=== PATIENT | female | born 1980 | race American Indian/Alaskan Native ===

== ENCOUNTER 2016-04-14 15:28 | Emergency (ER) | payer MEDICAID, OTHER ==
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
[2016-04-14 19:46] VITALS: BP 122/83
== END 2016-04-14 20:05 | disposition home or self-care (01) ==
LOC: ED 15:28
DX: S16.1XXA Strain of muscle, fascia and tendon at neck level, initial encounter (principal); I10 Essential (primary) hypertension; F17.200 Nicotine dependence, unspecified, uncomplicated; V43.62XA Car passenger injured in collision with other type car in traffic accident, initial encounter; Y93.9 Activity, unspecified; Y99.9 Unspecified external cause status; Y92.410 Unspecified street and highway as the place of occurrence of the external cause
CPT/HCPCS: 99283

== ENCOUNTER 2016-04-16 10:34 | Emergency (ER) | payer OTHER ==
[2016-04-16] MEDS ORDERED: TORADOL ONE (14:45)
[2016-04-16] MEDS ORDERED: VALIUM ONE (14:46)
[2016-04-16] MEDS ORDERED: TORADOL IM ONE (15:02)
[2016-04-16] MEDS ORDERED: VALIUM PO ONE (15:02)
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
== END 2016-04-16 15:41 | disposition home or self-care (01) ==
LOC: ED 10:34
DX: M54.5 Low back pain (principal); I10 Essential (primary) hypertension; F17.200 Nicotine dependence, unspecified, uncomplicated
CPT/HCPCS: 96372; 99282; J1885

== ENCOUNTER 2017-08-01 09:44 | Emergency (ER) | payer OTHER ==
[2017-08-01 10:33] VITALS: BP 129/81
== END 2017-08-01 14:40 ==
LOC: ED 09:44
DX: F29 Unspecified psychosis not due to a substance or known physiological condition (principal); Z53.21 Procedure and treatment not carried out due to patient leaving prior to being seen by health care provider

== ENCOUNTER 2017-08-01 17:12 | Emergency (ER) | payer OTHER ==
[2017-08-01 18:25] LABS: Basophils % (Auto) 0.7 % (0.0-1.8); Eosinophils # (Auto) 0.1 K/mm3 (0.0-0.4); Eosinophils % (Auto) 2.2 % (0.0-4.3); Hematocrit 37.8 % (30.3-42.9); Hemoglobin 11.8 gm/dl (10.1-14.3); Lymphocytes # (Auto) 2.8 K/mm3 (1.2-5.4); Lymphocytes % (Auto) 48.3 % (13.4-35.0); Mean Corpuscular HGB Conc 31 % (30-34); Mean Corpuscular Hemoglobin 27 pg (28-32); Mean Corpuscular Volume 87 fl (79-97); Monocytes # (Auto) 0.7 K/mm3 (0.0-0.8); Platelet Count 237 K/mm3 (140-440); Red Blood Count 4.36 M/mm3 (3.65-5.03); Red Cell Distribution Width 15.4 % (13.2-15.2)
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
[2017-08-01 18:45] LABS: BUN/Creatinine Ratio 23; Blood Urea Nitrogen 14 mg/dL (7-17); Calcium 8.8 mg/dL (8.4-10.2); Hemolysis Index 24
[2017-08-01 19:36] LABS: Bilirubin,Urine NEG (Negative); Blood,Urine NEG (Negative); Color,Urine Straw (Yellow); Mucus,Urine FEW /HPF; Protein,Urine <15 mg/dL mg/dL (Negative); Urobilinogen,Urine < 2.0 mg/dL (<2.0)
[2017-08-01 19:43] LABS: Amphetamine Screen,Urine PRESUMPTIVE NEGATIVE; Benzodiazepines Screen,Urine PRESUMPTIVE NEGATIVE; Cannabinoid Screen,Urine PRESUMPTIVE NEGATIVE; Cocaine Screen,Urine PRESUMPTIVE NEGATIVE; Methadone Screen,Urine PRESUMPTIVE NEGATIVE; Opiate Screen,Urine PRESUMPTIVE NEGATIVE
--- NOTE | 2017-08-01 20:31 | Emergency Department Report ---
ED Medical Clearance HPI - General Chief complaint: Medical Clearance Stated complaint: MED EVAL FOR ANCHOR Time Seen by Provider: 08/01/17 18:12 Source: patient Mode of arrival: Ambulatory - History of Present Illness Initial comments: 36-year-old female presents for medical clearance for [facility]. Mental health personnel at [phone] notified regarding patient's request. Patient has a history of cocaine use. Patient is awake alert and oriented 3 not in acute distress. Complains of slight itchy rash under her breasts but otherwise has no other complaints. Denies fever chills nausea vomiting chest pain palpitations shortness of breath abdominal pain dysuria or increased urinary frequency. MD Complaint: medical clearance request Reason for Medical Clearance: other (drug rehabilitation program) Home medications: Previous Rx's Medication Instructions Recorded Last Taken Type ALBUTEROL Inhaler [ProAir HFA 2 puff IH QID PRN #1 unit 12/04/14 Unknown Rx Inhaler] Levofloxacin [Levaquin TAB] 750 mg PO QDAY #7 tablet 12/04/14 Unknown Rx Acetaminophen/Codeine [Tylenol #3] 1 tab PO Q6H PRN #15 tab 12/14/14 Unknown Rx Cephalexin [Keflex] 500 mg PO Q12HR 5 Days cap 12/14/14 Unknown Rx Cephalexin [Keflex] 500 mg PO Q6HR #40 capsule 01/17/15 Unknown Rx Ibuprofen [Motrin] 600 mg PO Q8H PRN #30 tablet 01/17/15 Unknown Rx Cyclobenzaprine [Flexeril] 10 mg PO TID PRN #15 tablet 04/14/16 Unknown Rx Ibuprofen [Motrin 600 MG tab] 600 mg PO Q8H PRN 15 Days tablet 04/14/16 Unknown Rx Diazepam [Valium] 10 mg PO Q8H PRN #15 tablet 04/16/16 Unknown Rx Nystatin [Nystop Powder] 1 applicatio TP BID #1 bottle 08/01/17 Unknown Rx Tolnaftate [Tinactin] 1 spray TP TID #1 aero.powd 08/01/17 Unknown Rx Allergies/Adverse reactions: Allergies Allergy/AdvReac Type Severity Reaction Status Date / Time No Known Allergies Allergy Verified 12/03/14 05:50 ED Review of Systems ROS: Stated complaint: MED EVAL FOR ANCHOR Other details as noted in HPI Constitutional: denies: chills, fever Eyes: denies: eye pain, eye discharge, vision change ENT: denies: ear pain, throat pain Respiratory: denies: cough, shortness of breath, wheezing Cardiovascular: denies: chest pain, palpitations Endocrine: no symptoms reported Gastrointestinal: denies: abdominal pain, nausea, diarrhea Genitourinary: denies: urgency, dysuria, discharge Musculoskeletal: denies: back pain, joint swelling, arthralgia Skin: rash (rash underneath her breasts). denies: lesions Neurological: denies: headache, weakness, paresthesias Psychiatric: denies: anxiety, depression Hematological/Lymphatic: denies: easy bleeding, easy bruising ED Past Medical Hx - Past Medical History Hx Hypertension: Yes (PIH) Hx Heart Attack/AMI: No Hx Congestive Heart Failure: No Hx Diabetes: No Hx Deep Vein Thrombosis: No Hx Liver Disease: No Hx Renal Disease: No Hx Sickle Cell Disease: No Hx Seizures: No Hx Asthma: No Hx COPD: No Hx HIV: No Additional medical history: Tapeworm - Surgical History Hx Pacemaker: No Hx Internal Defibrillator: No Additional Surgical History: c-secx1 - Social History Smoking Status: Current Every Day Smoker Substance Use Type: Alcohol, Cocaine - Medications Home Medications: Home Medications Medication Instructions Recorded Confirmed Last Taken Type ALBUTEROL Inhaler [ProAir HFA 2 puff IH QID PRN #1 unit 12/04/14 Unknown Rx Inhaler] Levofloxacin [Levaquin TAB] 750 mg PO QDAY #7 tablet 12/04/14 Unknown Rx Acetaminophen/Codeine [Tylenol #3] 1 tab PO Q6H PRN #15 tab 12/14/14 Unknown Rx Cephalexin [Keflex] 500 mg PO Q12HR 5 Days cap 12/14/14 Unknown Rx Cephalexin [Keflex] 500 mg PO Q6HR #40 capsule 01/17/15 Unknown Rx Ibuprofen [Motrin] 600 mg PO Q8H PRN #30 tablet 01/17/15 Unknown Rx Cyclobenzaprine [Flexeril] 10 mg PO TID PRN #15 tablet 04/14/16 Unknown Rx Ibuprofen [Motrin 600 MG tab] 600 mg PO Q8H PRN 15 Days tablet 04/14/16 Unknown Rx Diazepam [Valium] 10 mg PO Q8H PRN #15 tablet 04/16/16 Unknown Rx Nystatin [Nystop Powder] 1 applicatio TP BID #1 bottle 08/01/17 Unknown Rx Tolnaftate [Tinactin] 1 spray TP TID #1 aero.powd 08/01/17 Unknown Rx ED Physical Exam - General Limitations: No Limitations General appearance: alert, in no apparent distress - Head Head exam: Present: atraumatic, normocephalic - Eye Eye exam: Present: normal appearance, PERRL, EOMI - ENT ENT exam: Present: mucous membranes moist - Neck Neck exam: Present: normal inspection - Respiratory Respiratory exam: Present: normal lung sounds bilaterally. Absent: respiratory distress - Cardiovascular Cardiovascular Exam: Present: regular rate, normal rhythm. Absent: systolic murmur, diastolic murmur, rubs, gallop - GI/Abdominal GI/Abdominal exam: Present: soft, normal bowel sounds - Extremities Exam Extremities exam: Present: normal inspection - Back Exam Back exam: Present: normal inspection - Neurological Exam Neurological exam: Present: alert, oriented X3 - Psychiatric Psychiatric exam: Present: normal affect, normal mood - Skin Skin exam: Present: warm, dry, intact, normal color, rash (slight itchy rash underneath breasts the appearance of candidate) ED Course Vital Signs 08/01/17 17:24 Temperature 98.7 F Pulse Rate 90 Respiratory 18 Rate Blood Pressure 121/75 O2 Sat by Pulse 99 Oximetry ED Medical Decision Making - Lab Data Result diagrams: 08/01/17 18:10 08/01/17 18:10 - Medical Decision Making A/P: Medical clearance 1-nystatin powder for candcal intetrigo 2-labs are otherwise unremarkable 3-patient medically cleared to return back to [facility] 4- I discussed this with mental health counselor at extension [phone]. ED Disposition Clinical Impression: Intertrigo, Routine physical examination Disposition: DC-01 TO HOME OR SELFCARE Is pt being admited?: No Does the pt Need Aspirin: No Condition: Stable Prescriptions: Nystatin [Nystop Powder] 1 applicatio TP BID #1 bottle Tolnaftate [Tinactin] 1 spray TP TID #1 aero.powd Referrals: [facility] [Outside] - 3-5 Days Time of Disposition: 20:32
[2017-08-01 20:41] VITALS: BP 144/68
== END 2017-08-01 20:39 | disposition home or self-care (01) ==
LOC: ED 17:12
DX: L30.4 Erythema intertrigo (principal); I10 Essential (primary) hypertension; F17.200 Nicotine dependence, unspecified, uncomplicated; F14.10 Cocaine abuse, uncomplicated
CPT/HCPCS: 36415; 80048; 80307; 81001; 82550; 84703; 85025; 99283; G0480; 80320

== ENCOUNTER 2018-11-22 09:09 | Outpatient (CLI) | payer OTHER ==
--- NOTE | 2018-11-23 10:07 | Ultrasound Report ---
BILATERAL DIGITAL DIAGNOSTIC MAMMOGRAM WITH CAD -- 11/22/2018 BILATERAL LIMITED BREAST ULTRASOUND INDICATION: RT BREAST MASS. The patient stated that the lump had been present for over one year witho ut change. TECHNIQUE: Digital bilateral mammographic imaging was performed. Spot compression views were obtaine d. Limited ultrasound was performed. This examination was interpreted with the benefit of Computer- ded Detection (CAD) analysis. COMPARISON: None. FINDINGS: Breast Density: The breasts are heterogeneously dense, which may obscure small masses. MAMMOGRAPHIC FINDINGS: There is no evidence of dominant mass, suspicious calcifications or architectu ral distortion in the left breast. A right outer asymmetry on the CC view and no mammographic finding at a palpable marker which is only on the MLO view. No architectural distortion or suspicious calcif ications of the right breast. ULTRASOUND FINDINGS: Targeted ultrasound evaluation was performed of the area of interest. An oval solid relatively smooth heterogeneous hypoechoic mass at 8:00 4 cm from the nipple correlates with th e palpable lump. It measures 1.5 x 0.6 x 1.4 cm. IMPRESSION: A probably benign 1.5 cm left breast mass at 8:00 4 cm from the nipple. Follow up recommendation: Recommend right breast ultrasound to reevaluate the mass at 8:00 in 6 month s. BI-RADS Category 3: Probably Benign. Followup in 6 months. A "normal" or negative report should not discourage follow up or biopsy of a clinically significant f inding. A written summary of these findings will be mailed to the patient. The patient will be entered into a mammography reporting system which will generate a reminder letter for the patient's next appointmen t at the appropriate interval. According to the [employer], yearly mammograms are recommended starting at age 40 and continuing as long as a woman is in good health. Breast MRI is recommended for women with an regino roximately 20-25% or greater lifetime risk of breast cancer, including women with a strong family his tory of breast or ovarian cancer and women who have been treated for Hodgkin's disease. Signer Name: Joe Guadarrama MD Signed: 11/23/2018 10:03 AM Workstation Name: [id number]
== END 2018-11-22 09:10 | disposition home or self-care (01) ==
LOC: MAMMO 09:09
PROVIDERS: ATTEND Nurse Practitioner
DX: R92.1 Mammographic calcification found on diagnostic imaging of breast (principal)
CPT/HCPCS: 77066

== ENCOUNTER 2021-09-07 03:32 | Emergency (ER) | payer SELFPAY ==
[2021-09-07 03:45] VITALS: BP 128/89
== END 2021-09-07 07:38 | disposition left against medical advice (07) ==
LOC: ED 03:32
DX: R07.9 Chest pain, unspecified (principal); L08.9 Local infection of the skin and subcutaneous tissue, unspecified; R06.2 Wheezing; Z53.21 Procedure and treatment not carried out due to patient leaving prior to being seen by health care provider

== ENCOUNTER 2021-11-13 04:36 | Emergency (ER) | payer SELFPAY | END 2021-11-13 05:15 | disposition left against medical advice (07) | LOC: ED 04:36 | DX: R07.89 Other chest pain (principal); Z53.21 Procedure and treatment not carried out due to patient leaving prior to being seen by health care provider ==